=== PATIENT | male | born 1945 | race Caucasian/White ===

== ENCOUNTER 2018-02-19 14:49 | Outpatient (CLI) | payer MEDICARE ==
--- NOTE | 2018-02-19 16:24 | RAD ---
CHEST 2 VIEWS: Date: 02/19/18 HISTORY: Preop. FINDINGS: Cardiac silhouette is within normal limits. Pulmonary vasculature upper limits of normal. Mediastinum midline. No lobar consolidation, pneumothorax, or pleural fluid. Ossification of the anterior longit udinal ligament and thoracic spine is consistent with idiopathic skeletal hyperostosis. IMPRESSION: Borderline pulmonary vascular prominence. No florid edema. POS: [facility]
[2018-02-19 16:46] LABS: #Eosinphils 0.2 thou/uL (0.0-0.7); #Lymphocytes 1.8 thou/uL (1.20-3.40); #Monocytes 0.9 thou/uL (0.11-0.59); #Neutrophils 5.9 thou/uL (1.40-6.50); %Basophils 0.1 % (0.0-1.0); %Eosinophils 2.5 % (0.0-10.0); %Lymphocytes 20.3 % (21.0-51.0); %Monocytes 10.2 % (0.0-10.0); Hemoglobin 13.8 g/dL (14.0-18.0); Mean Corpuscular HGB CONC 33.9 g/dL (32.0-36.0); Mean Corpuscular Hemoglobin 30.9 pg (27.0-31.0); Mean Corpuscular Volume 91.2 fl (80.0-94.0); Platelet Count 178 thou/uL (130-400); RBC Distribution Width 12.5 % (11.5-14.5); Red Blood Cell (RBC) Count 4.46 mill/uL (4.70-6.10); White Blood Cell (WBC) Count 8.8 thou/uL (4.8-10.8)
[2018-02-19 17:06] LABS: Anion Gap 14 mmol/L (10-20); BUN (Urea Nitrogen) 22 mg/dL (8.4-25.7); Calc. Creatinine Clearance 0 mL/min (70-130); Carbon Dioxide 21 mmol/L (23-31); Chloride 105 mmol/L (98-107); Estimated GFR-MDRD 85; Glucose 166 mg/dL (83-110); Sodium 135 mmol/L (136-145)
--- NOTE | 2018-02-20 12:51 | EKG ---
Test Reason : Blood Pressure : / mmHG Vent. Rate : 061 BPM Atrial Rate : 061 BPM P-R Int : 000 ms QRS Dur : 106 ms QT Int : 438 ms P-R-T Axes : 000 -07 000 degrees QTc Int : 440 ms Sinus Rhythm Cannot rule out Anterior infarct , age undetermined Abnormal ECG No previous ECGs available Confirmed by SONJA SPARKS ([id number]) on 02/20/2018 12:50:31 PM Referred By: EDGAR Confirmed By:SONJA SPARKS
== END 2018-02-19 14:50 | disposition home or self-care (01) ==
LOC: LABBT 14:49
PROVIDERS: ATTEND Orthopaedic Surgery Hand Surgery
DX: Z01.818 Encounter for other preprocedural examination (principal); G56.21 Lesion of ulnar nerve, right upper limb
CPT/HCPCS: 71046; 80048; 85025; 93005; 93010

== ENCOUNTER 2018-02-27 05:34 | Day surgery (SDC) | payer MEDICARE ==
[2018-02-19 16:38] VITALS: BMI 44.6
[2018-02-27] MEDS ORDERED: CEFAZOLIN/Water 2 GM/20 ML SYRINGE ONE (06:13)
[2018-02-27] MEDS ORDERED: Bupivacaine PF 0.5% 30 ML VIAL ONE (06:41)
[2018-02-27] MEDS ORDERED: Bacitracin Zinc Ointment 30 gm TUBE ONE (06:41)
[2018-02-27] MEDS ORDERED: Betamet Acet/Betamet Na Ph 30 MG/5 ML VIAL ONE ×2 (06:41→08:34)
[2018-02-27] MEDS ORDERED: Fentanyl 100 MCG/2 ML VIAL ONE (07:08)
[2018-02-27] MEDS ORDERED: Midazolam HCl 2 mg/2 ml Vial ONE (07:08)
[2018-02-27] MEDS ORDERED: Thrombin 5000 UNITS/5 ML VIAL ONE (10:06)
[2018-02-27] MEDS ORDERED: Ketorolac Tromethamine 30 MG/ML VIAL ONE ×2 (10:57→15:59)
[2018-02-27] MEDS ORDERED: Ondansetron HCl/PF 4 MG/2 ML Vial ONE (15:59)
[2018-02-27] MEDS ORDERED: PROPOFOL 200 MG/20 ML VIAL ONE (15:59)
[2018-02-27] MEDS ORDERED: Lidocaine 1% PF 5 ML VIAL ONE (15:59)
[2018-02-27] MEDS ORDERED: PHENYLEPHRINE-NS 100 MCG/ML 10 ML SYRINGE ONE (15:59)
--- NOTE | 2018-03-02 12:41 | OP ---
DATE OF PROCEDURE: 03/09/2018 PREOPERATIVE DIAGNOSES: 1. Right cubital tunnel. 2. Right carpal tunnel syndrome. 3. Right ulnar nerve level compression, Guyon's canal. 4. Right olecranon bursitis. POSTOPERATIVE DIAGNOSES: 1. Right cubital tunnel. 2. Right carpal tunnel syndrome. 3. Right ulnar nerve level compression Guyon's canal. 4. Right olecranon bursitis. PROCEDURE PERFORMED: 1. Right radical olecranon bursectomy. 2. Right carpal tunnel syndrome. 3. Right cubital tunnel release with ulnar nerve submuscular transposition. 4. Right Guyon's canal release ulnar nerve neuroplasty at the wrist. 5. Application of long arm splint. 6. Application of Celestone 7 at the wrist level ulnar nerve and median nerve and 8 at the cubital t unnel just before closing the submuscular portal. FINDINGS: A very tight transverse carpal ligament, Guyon's canal and very flat compression of the ul shan[place] nerve of elbow over a 3 centimeter segment beginning at the head of the flexor tendon origin, und erneath the primary cubital tunnel and even the fascial band due to intermuscular septum. TOURNIQUET TIME: First tourniquet 22 minutes followed by 20 minutes tourniquet time. Now we closed the distal wound and then another 90 minutes. DESCRIPTION OF PROCEDURE: After successful general LMA technique, the limb was prepped and draped. We outlined a curvilinear incision beginning just radial to the flexor carpi ulnaris tendon, parallel to the wrist flexion crease and then in line with the ring finger going across the wrist flexion cre ase to the level of just proximal to the transverse carpal ligament. At that point, we then began to outline the midline incision over the elbow centered on the olecranon and slightly curved medially a t the olecranon, so we divided the point. We had a sterile tourniquet applied, and I exsanguinated t he limb and inflated tourniquet to 250 mmHg pressure. At this point, we then began the distal surgery. A skin incision was entered as outlined, complicate d skin and subcutaneous tissue to reach the fascia. [place] blade was used to separate the fascia ove r the ulnar neurovascular bundle until we could see it and we traced this and made a complete skin fl ap medially and laterally, protecting cutaneous branches including the palmar cutaneous branch of the median nerve. Visualizing this, we then released Guyon's fascia first, followed the nerve out to th e level of its bifurcation, did not do any arterial damage whatsoever and nerve was freed and the air way was tight. Meanwhile, just 2 cm rate of this transcarpal ligament was identified at its origin, carried the incision through it with a [place] blade was carried distally, protect neurovascular bundl e and the prior motor branch, which was a type 1 takeoff. This was done, replaced Celestone over both the nerves where transcarpal ligament was tightened up an d Guyon's canal where the nerve was flattened and then I released the tourniquet. Once the hemostasi s was intact removing the ulnar artery back, we then closed this incision with interrupted 4-0 nylon in a mattress pattern over the palmar skin in simple pattern over the volar forearm. We then re-exsanguinated the limb, inflated tourniquet to 250 mmHg pressure and then made our incisio n along the midline and ulna except for right olecranon where it curved medially. Medially within 2 cm of making the skin incision, we could see the olecranon bursa was boggy thick without infection, b ut inflamed. He had one Rice body. We did a Radical olecranon bursectomy once the incision was cut reopened and we identified the ulnar nerve. Then, we followed the nerve as far proximal as possible subcutaneous tissue and began ulnar nerve neuroplasty by releasing the nerve from the highe st point most proximal incision to the level of the posterior medial epicondyle. He had the fascia b ecame very tight and we had to perform very careful release using combination of [place] blade as well as tenotomy scissors. This entailed the fascia here, and intermuscular septum, and the primary cove r over the cubital tunnel. Once we had done this and visualized, a flat nerve was realized that a ne uroplasty would be needed and we continued the release distally through the two heads into the fascia covering the ulnar nerve distally. Once the new nerve was protected, we began dissecting along with a blood vessel until the nerve could be transposed completely 2 cm anterior. Then, we protected the nerve, performed an intermuscular septum removal without disturbing the vascular bed and protect the ulnar nerve without complication. We removed 10 cm of the septum to the point where it almost cross ed into the fascia over the ulnar nerve proximally. The proximal release was extended 2 cm and there was no evidence of compression of the ulnar nerve even when transpose position was applied. We made a Z-plasty in the flexor origin, slid this 1 cm distally, lifted the flexor carpi ulnaris fas melani up until it completely could slide and stopped at the level of the motor branch to the heads. Th en, the nerve was transposed, the bed was very clean. There was no ulnar collateral ligament injury or disturbance instability. We placed the remaining 2 mL of the steroid over the nerve within this n ew tunnel, closed it gently with interrupted #2 Ethibond, Veress 4 needle, and then tied this in a fi [id number] pattern. Six separate sutures were placed with and without any undue tension on any po rtion of previous muscle belly. The patient then had the tourniquet deflated. Hemostasis was obtain ed. The bursa was sent off for specimen. After all these had been removed, we closed the wound with a running 4-0 Monocryl, 3-0 nylon for the skin was applied in interrupted simple pattern mixed with interrupted mattress and the patient had a bulky dressing applied with the elbow at approximately 80 degrees short of full extension. No evidence of anesthetic or operative complication was seen.
== END 2018-02-27 13:15 | disposition home or self-care (01) ==
LOC: SDC 05:34
PROVIDERS: ATTEND Orthopaedic Surgery Hand Surgery
PROC: 01N40ZZ Release Ulnar Nerve, Open Approach (ICD-10-PCS; principal; 2018-02-27)
PROC: 0MB30ZZ Excision of Right Elbow Bursa and Ligament, Open Approach (ICD-10-PCS; 2018-02-27)
PROC: 01S40ZZ Reposition Ulnar Nerve, Open Approach (ICD-10-PCS; 2018-02-27)
PROC: 01N50ZZ Release Median Nerve, Open Approach (ICD-10-PCS; 2018-02-27)
DX: M71.521 Other bursitis, not elsewhere classified, right elbow (principal); G56.21 Lesion of ulnar nerve, right upper limb; G56.01 Carpal tunnel syndrome, right upper limb; I10 Essential (primary) hypertension; E78.5 Hyperlipidemia, unspecified; I48.91 Unspecified atrial fibrillation; E11.9 Type 2 diabetes mellitus without complications; E66.9 Obesity, unspecified; Z68.41 Body mass index [BMI] 40.0-44.9, adult; Z88.1 Allergy status to other antibiotic agents; Z79.01 Long term (current) use of anticoagulants; Z79.4 Long term (current) use of insulin; Z79.899 Other long term (current) drug therapy; Z96.653 Presence of artificial knee joint, bilateral
CPT/HCPCS: 36416; 88304; 96372; J0702; J1885; J2001; J2250; J2405; J2704; J3010; S0020